=== PATIENT | male | born 1995 | race Hispanic/Latino ===

== ENCOUNTER 2021-01-31 22:56 | Emergency (ER) | payer SELFPAY ==
[~2021-01-31] VITALS: Ht 180.3 cm; Wt 92.1 kg
[2021-02-01] MEDS ORDERED: BACTRIM DS TAB1 EACH PO (00:18)
== END 2021-02-01 00:25 | disposition home or self-care (01) ==
LOC: ER 23:48
DX: R07.89 Other chest pain (principal); J18.9 Pneumonia, unspecified organism; E11.9 Type 2 diabetes mellitus without complications
CPT/HCPCS: 71046; 93005; 99282